=== PATIENT | female | born 1955 | race Caucasian/White ===

== ENCOUNTER 2019-07-25 19:25 | Inpatient (IN) | payer BC, MEDICARE ==
[~2019-07-25] VITALS: Ht 170.2 cm; Wt 99.7 kg
[2019-07-25 19:35] VITALS: BP 122/62
[2019-07-25] MEDS ORDERED: ONDANSETRON PF 4 MG/2 ML VIAL. IVP PRN (20:00)
[2019-07-25] MEDS: POTASSIUM CL 20MEQ D5-0.45NACL 1,000 ML IV SCH (21:11)
[2019-07-25] MEDS: fentaNYL PF VIAL 100 MCG/2 ML VIAL IVP PRN (22:53)
[2019-07-25 23:02] VITALS: BP 112/46
[2019-07-26] VITALS (11 sets, daily range): BP systolic 95–127; BP diastolic 43–63
[2019-07-26] MEDS: PIPERACILLIN/TAZOBACTAM 3.375 GM in IV NORMAL SALINE 50ML 50 ML IV SCH ×4 (00:25→18:27)
[2019-07-26] MEDS ORDERED: FLUO20CA20 PO (01:32)
[2019-07-26] MEDS ORDERED: TRIA50CA3 PO (01:32)
[2019-07-26] MEDS ORDERED: THYR30TA2 PO (01:32)
[2019-07-26] MEDS ORDERED: METO25TA4 PO (01:32)
[2019-07-26] MEDS ORDERED: GABA600T7 PO (01:32)
[2019-07-26] MEDS ORDERED: METF500T16 PO (01:32)
[2019-07-26] MEDS ORDERED: ALBU2.5V8 INH (01:32)
[2019-07-26] MEDS ORDERED: PITA2TAB2 PO (01:32)
[2019-07-26] MEDS ORDERED: HYDR-2767 PO (01:32)
[2019-07-26] MEDS ORDERED: ALBU2.5V8 IH (01:32)
[2019-07-26] MEDS: fentaNYL PF VIAL 100 MCG/2 ML VIAL IVP PRN ×3 (02:36→08:49)
[2019-07-26 04:29] LABS: BASO % 0 % (0-3); EOS % 0 % (0-3); HEMATOCRIT 33.4 % (36.0-47.0); HEMOGLOBIN 11.7 g/dL (12.0-15.5); LYMPH # 0.7 x10^3/uL (1.0-4.8); LYMPH % 9 % (24-48); MEAN CORPUSCULAR HEMOGLOBIN 30 pg (25-35); MEAN CORPUSCULAR HGB CONC 35 g/dL (31-37); MEAN CORPUSCULAR VOLUME 86 fL (79-100); MONO # 0.6 x10^3/uL (0.0-1.1); MONO % 7 % (0-9); NEUT # 7.3 x10^3/uL (1.8-7.7); NEUT % 84 % (31-73); PLATELET COUNT 158 x10^3/uL (140-400); RED CELL DISTRIBUTION WIDTH 13.3 % (11.5-14.5); WHITE BLOOD COUNT 8.7 x10^3/uL (4.0-11.0)
[2019-07-26 04:56] LABS: PROTHROMBIN TIME PATIENT 14.6 SEC (11.7-14.0)
[2019-07-26 05:00] LABS: ALBUMIN 2.9 g/dL (3.4-5.0); CALCIUM 8.1 mg/dL (8.5-10.1); GFR 55.6; POTASSIUM 3.2 mmol/L (3.5-5.1); TOTAL PROTEIN 5.7 g/dL (6.4-8.2)
[2019-07-26] MEDS: POTASSIUM CL 20MEQ D5-0.45NACL 1,000 ML IV SCH (05:41)
[2019-07-26] MEDS ORDERED: IV RINGERS,LACTATED 1000ML 1,000 ML IV SCH (06:58)
[2019-07-26] MEDS ORDERED: LIDOCAINE 1% PF 2 ML VIAL. ID PRN (07:00)
[2019-07-26] MEDS ORDERED: ONDANSETRON PF 4 MG/2 ML VIAL. IV PRN (07:00)
[2019-07-26] MEDS ORDERED: PROCHLORPERAZINE 10 MG/2 ML VIAL. IV PRN (07:00)
[2019-07-26] MEDS ORDERED: MORPHINE SULFATE 2 MG/ML VIAL. IV PRN (07:00)
[2019-07-26] MEDS ORDERED: fentaNYL PF VIAL 100 MCG/2 ML VIAL IV PRN ×2 (07:00)
[2019-07-26] MEDS ORDERED: HYDROmorphone 2 MG/ML VIAL IV PRN (07:00)
--- NOTE | 2019-07-26 08:00 | NUR ---
SW following. Discussed with RN, pt from home, pt having a lap appy today. SW will continue to follow for any discharge planning needs.
--- NOTE | 2019-07-26 08:45 | PDOC2 ---
JOHN PERALTA Ulysses PHARMACIST IN CHARGE 07/26/19 0845: CONSULT Date of Consult Date of Consult DATE: 07/26/19 TIME: 08:37 Reason for Consult Reason for Consult: acute appendicitis Referring Physician Referring Physician: ER Identification/Chief Complaint Chief Complaint abdominal pain Source Source: Chart review, Patient History of Present Illness Reason for Visit: acute onset of RLQ pain yesterday, pain became progressively worse. Associated nausea, low grade fevers. Pain aggravated by movement. No alleviating factors Past Medical History Cardiovascular: HTN, Hyperlipidemia, Other (tachycardia ) Pulmonary: Asthma, Other (apnea, cpap use) Endocrine: Diabetes, Hypothyroidism Past Surgical History Past Surgical History: Other (lap band, foot surgery) Family History Family History: Other (noncontributory to current illness ) Social History No ALCOHOL: rare Drugs: None Lives: with Family Current Medications Current Medications Current Medications Fentanyl Citrate (Fentanyl 2ml Vial) 50 mcg PRN Q3HRS PRN IVP PAIN Last administered on 07/26/19at 05:41; Start 07/25/19 at 20:00 Ondansetron HCl (Zofran) 4 mg PRN Q4HRS PRN IVP NAUSEA/VOMITING Last administered on 07/26/19at 02:41; Start 07/25/19 at 20:00 Piperacillin Sod/ Tazobactam Sod 3.375 gm/Sodium Chloride 50 ml @ 100 mls/hr Q6HRS IV Last administered on 07/26/19at 05:41; Start 07/26/19 at 00:00 Potassium Chloride/Dextrose/ Sod Cl 1,000 ml @ 100 mls/hr Q10H IV Last administered on 07/26/19at 05:41; Start 07/25/19 at 20:00 Ondansetron HCl (Zofran) 4 mg PRN Q6HRS PRN IV NAUSEA/VOMITING; Start 07/26/19 at 07:00; Stop 07/27/19 at 06:59 Fentanyl Citrate (Fentanyl 2ml Vial) 25 mcg PRN Q5MIN PRN IV MILD PAIN 1-3; Start 07/26/19 at 07:00; Stop 07/27/19 at 06:59 Fentanyl Citrate (Fentanyl 2ml Vial) 50 mcg PRN Q5MIN PRN IV MODERATE TO SEVERE PAIN; Start 07/26/19 at 07:00; Stop 6/20/20 at 06:59 Morphine Sulfate (Morphine Sulfate) 1 mg PRN Q10MIN PRN IV SEVERE PAIN 7-10; Start 07/26/19 at 07:00; Stop 07/27/19 at 06:59 Ringer's Solution 1,000 ml @ 30 mls/hr Q24H IV ; Start 07/26/19 at 06:58; Stop 07/26/19 at 18:57 Lidocaine HCl (Xylocaine-Mpf 1% 2ml Vial) 2 ml PRN 1X PRN ID PRIOR TO IV START; Start 07/26/19 at 07:00; Stop 07/27/19 at 06:59 Hydromorphone HCl (Dilaudid) 0.5 mg PRN Q10MIN PRN IV SEV PAIN, Second choice; Start 07/26/19 at 07:00; Stop 07/27/19 at 06:59 Prochlorperazine Edisylate (Compazine) 5 mg PACU PRN PRN IV NAUSEA, MRX1; Start 07/26/19 at 07:00; Stop 07/27/19 at 06:59 Active Scripts Active Reported [employer] Thyroid (Thyroid,Pork) 30 Mg Tablet 1 Tab PO DAILY 30 Days Hydrocodone-Acetamin 10-325 mg (Hydrocodone/Acetaminophen) 1 Each Tablet 1 Each PO HS Proair Hfa (Albuterol Sulfate) 8.5 Gm Hfa.aer.ad 1 Puff INH PRN Q6HRS PRN Proair Hfa (Albuterol Sulfate) 8.5 Gm Hfa.aer.ad 2 Puff IH PRN Q4-6HRS PRN 21 Days Metformin Hcl 500 Mg Tablet 500 Mg PO HS Livalo (Pitavastatin Calcium) 2 Mg Tablet 1 Tab PO HS 30 Days Fluoxetine Hcl 20 Mg Capsule 1 Cap PO DAILY Triamterene 50 Mg Capsule 37.5 Mg PO DAILY08 Gabapentin 600 Mg Tablet 600 Mg PO HS Metoprolol Tartrate 25 Mg Tablet 1 Tab PO HS Allergies Allergies: Coded Allergies: No Known Medication Allergies (Verified Allergy, Unknown, 07/25/19) ROS General: YES: Appetite (loss), Other (low grade fevers ); No: Chills PSYCHOLOGICAL ROS: No: Anxiety, Depression Eyes: No Blurry vision, No Double vision HEENT: No: Heacaches, Sore Throat Hematological and Lymphatic: No: Bleeding Problems, Blood Clots Respiratory: No: Cough, Shortness of breath Cardiovascular: No Chest Pain, No Palpitations Gastrointestinal: Yes Other (see hpi) Genitourinary: No Dysuria, No Hematuria Musculoskeletal: No Joint Pain, No Muscle Pain Neurological: No Headaches, No Numbness/Tingling Skin: No Pruritus, No Rash Physical Exam General: Alert, Oriented X3, Cooperative HEENT: Atraumatic, PERRLA Lungs: Clear to auscultation, Normal air movement Heart: Regular rate, Normal S1, Normal S2 Abdomen: Soft, Other (mildly distended, ttp moderate to severe, guarding on exam) Extremities: No clubbing, No cyanosis Skin: No rashes, No breakdown Neuro: Normal gait, Normal speech Psych/Mental Status: Mental status NL, Mood NL MUSCULOSKELETAL: No deformity, No swelling Vitals VITALS Vital Signs Date Time Temp Pulse Resp B/P (MAP) Pulse Ox O2 Delivery O2 Flow Rate FiO2 07/26/19 06:59 99.2 70 18 95/55 (68) 93 Room Air 99.2 Labs Labs Laboratory Tests Test 07/26/19 03:38 White Blood Count 8.7 x10^3/uL (4.0-11.0) Red Blood Count 3.90 x10^6/uL (3.50-5.40) Hemoglobin 11.7 g/dL (12.0-15.5) Hematocrit 33.4 % (36.0-47.0) Mean Corpuscular Volume 86 fL (79-100) Mean Corpuscular Hemoglobin 30 pg (25-35) Mean Corpuscular Hemoglobin Concent 35 g/dL (31-37) Red Cell Distribution Width 13.3 % (11.5-14.5) Platelet Count 158 x10^3/uL (140-400) Neutrophils (%) (Auto) 84 % (31-73) Lymphocytes (%) (Auto) 9 % (24-48) Monocytes (%) (Auto) 7 % (0-9) Eosinophils (%) (Auto) 0 % (0-3) Basophils (%) (Auto) 0 % (0-3) Neutrophils # (Auto) 7.3 x10^3/uL (1.8-7.7) Lymphocytes # (Auto) 0.7 x10^3/uL (1.0-4.8) Monocytes # (Auto) 0.6 x10^3/uL (0.0-1.1) Eosinophils # (Auto) 0.0 x10^3/uL (0.0-0.7) Basophils # (Auto) 0.0 x10^3/uL (0.0-0.2) Prothrombin Time 14.6 SEC (11.7-14.0) Prothromb Time International Ratio 1.2 (0.8-1.1) Sodium Level 139 mmol/L (136-145) Potassium Level 3.2 mmol/L (3.5-5.1) Chloride Level 103 mmol/L (98-107) Carbon Dioxide Level 27 mmol/L (21-32) Anion Gap 9 (6-14) Blood Urea Nitrogen 10 mg/dL (7-20) Creatinine 1.0 mg/dL (0.6-1.0) Estimated GFR (Cockcroft-Gault) 55.6 BUN/Creatinine Ratio 10 (6-20) Glucose Level 146 mg/dL (70-99) Calcium Level 8.1 mg/dL (8.5-10.1) Total Bilirubin 1.0 mg/dL (0.2-1.0) Aspartate Amino Transf (AST/SGOT) 15 U/L (15-37) Alanine Aminotransferase (ALT/SGPT) 25 U/L (14-59) Alkaline Phosphatase 38 U/L (46-116) Total Protein 5.7 g/dL (6.4-8.2) Albumin 2.9 g/dL (3.4-5.0) Albumin/Globulin Ratio 1.0 (1.0-1.7) Laboratory Tests Test 07/26/19 03:38 White Blood Count 8.7 x10^3/uL (4.0-11.0) Red Blood Count 3.90 x10^6/uL (3.50-5.40) Hemoglobin 11.7 g/dL (12.0-15.5) Hematocrit 33.4 % (36.0-47.0) Mean Corpuscular Volume 86 fL (79-100) Mean Corpuscular Hemoglobin 30 pg (25-35) Mean Corpuscular Hemoglobin Concent 35 g/dL (31-37) Red Cell Distribution Width 13.3 % (11.5-14.5) Platelet Count 158 x10^3/uL (140-400) Neutrophils (%) (Auto) 84 % (31-73) Lymphocytes (%) (Auto) 9 % (24-48) Monocytes (%) (Auto) 7 % (0-9) Eosinophils (%) (Auto) 0 % (0-3) Basophils (%) (Auto) 0 % (0-3) Neutrophils # (Auto) 7.3 x10^3/uL (1.8-7.7) Lymphocytes # (Auto) 0.7 x10^3/uL (1.0-4.8) Monocytes # (Auto) 0.6 x10^3/uL (0.0-1.1) Eosinophils # (Auto) 0.0 x10^3/uL (0.0-0.7) Basophils # (Auto) 0.0 x10^3/uL (0.0-0.2) Prothrombin Time 14.6 SEC (11.7-14.0) Prothromb Time International Ratio 1.2 (0.8-1.1) Sodium Level 139 mmol/L (136-145) Potassium Level 3.2 mmol/L (3.5-5.1) Chloride Level 103 mmol/L (98-107) Carbon Dioxide Level 27 mmol/L (21-32) Anion Gap 9 (6-14) Blood Urea Nitrogen 10 mg/dL (7-20) Creatinine 1.0 mg/dL (0.6-1.0) Estimated GFR (Cockcroft-Gault) 55.6 BUN/Creatinine Ratio 10 (6-20) Glucose Level 146 mg/dL (70-99) Calcium Level 8.1 mg/dL (8.5-10.1) Total Bilirubin 1.0 mg/dL (0.2-1.0) Aspartate Amino Transf (AST/SGOT) 15 U/L (15-37) Alanine Aminotransferase (ALT/SGPT) 25 U/L (14-59) Alkaline Phosphatase 38 U/L (46-116) Total Protein 5.7 g/dL (6.4-8.2) Albumin 2.9 g/dL (3.4-5.0) Albumin/Globulin Ratio 1.0 (1.0-1.7) Assessment/Plan Assessment/Plan acute appendicitis plan for lap appy consult for pulm, asthma, apnea hx, hypoxia postop in past surgery covid pending FREDRICK HOPKINS MD 07/26/19 0902: CONSULT Assessment/Plan Assessment/Plan Patient seen and examined by me. She complains of having right lower quadrant abdominal pain for approximately 18 hours starting yesterday denies any nausea vomiting fevers or chills. Came to the emergency department further evaluation CT scan showing signs consistent with acute appendicitis with no evidence of abscess or rupture. Plan for laparoscopic appendectomy today. Agree with [place] assessment and plan JOHN PERALTA APRN Jul 26, 2019 08:45 FREDRICK HOPKINS MD Jul 26, 2019 09:02
--- NOTE | 2019-07-26 10:04 | CONS ---
DATE OF CONSULTATION: PULMONARY CONSULTATION ATTENDING PHYSICIAN: Dr. Olson. REASON FOR CONSULTATION: Asthma, sleep apnea. HISTORY OF PRESENT ILLNESS: The patient is a 64-year-old morbidly obese patient with a BMI of 34. She has a history of obstructive sleep apnea for which she is on CPAP. She is not on home oxygen. She also has a history of asthma, mostly adult onset and has been on Advair. She states asthma is usually triggered by allergies and humidity. She has required steroids, maybe, twice a year. No history of deep vein thrombosis or pulmonary embolism. No postnasal drainage. No cough, no fever, no chills. She has put on about 30 pounds in last 2 years. She was brought into the hospital with right lower quadrant pain associated with nausea and low-grade fever and is being evaluated for acute appendicitis. Surgery is planned today. PAST MEDICAL HISTORY: History of hypertension, hyperlipidemia, history of asthma, history of sleep apnea, on CPAP, diabetes and hypertension. PAST SURGICAL HISTORY: Lap band and bunion surgery. FAMILY HISTORY: Noncontributory to lungs. ALLERGIES: None. MEDICATIONS: Reviewed as listed in the [facility] including antibiotic, Zosyn. REVIEW OF SYSTEMS: Twelve-point system obtained. Pertinent positives discussed in my history of present illness, otherwise noncontributory. All systems that were negative were reviewed as well. SOCIAL HISTORY: No significant tobacco history. PHYSICAL EXAMINATION: VITAL SIGNS: Reviewed. Pulse ox 93% on room air. NECK: Supple. LUNGS: Clear. CARDIOVASCULAR: Regular rate. ABDOMEN: Obese and some pain in the right lower quadrant. EXTREMITIES: With no pitting edema. LABORATORY DATA: Reviewed. White cell count 8.7, hemoglobin 11.7 and platelets are 158. BUN and creatinine normal. Chest x-ray is not done. IMPRESSION: 1. Acute appendicitis, scheduled for surgery later this morning. 2. The patient with history of asthma, under reasonable control and no flareups at present, on home Advair. Triggers are usually allergies as well as humidity. 3. History of obstructive sleep apnea, on home CPAP with good compliance and no residual hypersomnia, likely has a component of obesity hypoventilation syndrome. She had a low oxygen level when she had general anesthetic on prior surgery and this needs to be watched post surgery, especially when she would require postop narcotics. RECOMMENDATIONS: 1. I discussed with the patient that from a pulmonary standpoint, she is stable to proceed with surgery under general anesthetic. 2. We will watch for any postop hypoxia. We will also add her bronchodilators including DuoNebs and Pulmicort. 3. I would recommend using CPAP while in the hospital. 4. Weight loss is strongly emphasized. 5. We will obtain baseline chest x-ray. 6. We will follow along with you. Discussed with RN. INO BLOCK MD DR: YAYO/malik JOB#: [id number] / [id number]
--- NOTE | 2019-07-26 10:11 | PN ---
DATE: 07/26/2019 SUBJECTIVE: The patient is resting, slightly propped up in bed, in no apparent distress. She continued to have pain in the right lower quadrant. No nausea. No vomiting. PHYSICAL EXAMINATION: GENERAL: On examining her this morning, she looked well and was clearly in no apparent respiratory distress. No pallor, jaundice, cyanosis or thyromegaly. No jugular venous distention. No limb edema. VITAL SIGNS: Her heart rate was 70, blood pressure was 95/55, temperature was 99.2, respiratory rate was 18 and oxygen saturation was 93%. The rest of clinical exam is stable. She continued to have tenderness in the right lower quadrant. LABORATORY DATA: Her lab work this morning showed a serum sodium 139, potassium 3.2, chloride 103, bicarbonate 27, anion gap of 9, BUN 10, creatinine 1, estimated GFR was 55 mL per minute. Her glucose 146, calcium was 8.1. Total bilirubin 1. AST, ALT, alkaline phosphatase normal. Total protein 5.7, albumin 2.9. White cell count is 8700, hemoglobin 12, hematocrit 33, MCV 86 and platelet count of 158,000. Her prothrombin time and INR are within normal range. ASSESSMENT AND PLAN: Acute appendicitis. Apparently, she was seen by the surgical team and awaiting the result of the COVID test before proceeding with surgical treatment. Meanwhile, she has also hypokalemia. I will adjust her IV fluid to D5 half normal with 40 mEq of potassium chloride. We will continue with Zosyn for appendicitis as well as urinary tract infection. HAI RODRIGUES MD DR: ATA/malik JOB#: [id number] / [id number]
[2019-07-26] MEDS ORDERED: MAGNESIUM SULFATE 2GM 50 ML IV ONE (10:15)
--- NOTE | 2019-07-26 11:03 | HP ---
ADMIT DATE: 07/25/2019 HISTORY OF PRESENT ILLNESS: The patient is a 64-year-old female patient who apparently presented to the Emergency Room of [facility] with the complaint of fever up to 101, generalized malaise, nausea and right lower quadrant abdominal pain. Reports symptoms started the night before. She reports she was able to eat dinner with her family and subsequently started to feel uncomfortable. She reported that she took some Tums that seems to have some help. She woke up the day of admission with considerable pain in the right lower quadrant. She did have a bowel movement prior to arrival to the Emergency Room. 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 Denies known exposure to COVID-19. Denies any recent travel. She drank some jose ameena prior to the arrival to the Emergency Room. She was evaluated in the Emergency Room. Her white cell count was slightly elevated at 11.2. She had low-grade fever on arrival there at 99.9. Her chemistry was mostly unremarkable; however, CT scan of the abdomen and pelvis showed that she has acute appendicitis. There is no evidence of perforation or abscess. She has hepatomegaly and hepatic steatosis with finding suggestive of constipation, has also gastric lap band. She has a 1.4 cm hypodense lesion within the left hepatic lobe in the absence of known malignancy. This is likely a cyst or hemangioma. Tiny hypodense lesion within the uterus. This may be due to a lipoma with cystic degeneration of uterine fibroids. She has a grade 1 anterolisthesis with pars defects at L4-L5. The patient was transferred to [facility], kept n.p.o., started on IV fluid, IV antibiotic as well as pain medication, antiemetic. PAST MEDICAL HISTORY: Significant for hypertension, hyperlipidemia and prediabetes, depression, gastroesophageal reflux disease. PAST SURGICAL HISTORY: Significant for lap band surgery 15 years ago and bunionectomy in both feet. ALLERGIES: She has no known drug allergies. MEDICATIONS: Currently, she is on albuterol sulfate 2 puffs every 4-6 hours, Livalo 2 mg at bedtime, metoprolol tartrate 25 mg once a day, hydrocodone/APAP 10/325 one tablet at bedtime, gabapentin 600 mg at bedtime, fluoxetine 20 mg daily and triamterene 37.5 mg daily, metformin 500 mg at bedtime. She has Thyroid Pork 30 mg daily. FAMILY HISTORY: Noncontributory. SOCIAL HISTORY: She is apparently and lives with her family. She does not smoke, drink alcohol or use any recreational drugs. 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 PHYSICAL EXAMINATION: GENERAL: On arrival to the Emergency Room, she looked well and was clearly in no apparent respiratory distress. No pallor, jaundice, cyanosis or thyromegaly. No jugular venous distention. No lower limb edema. VITAL SIGNS: Her heart rate was 104, blood pressure was 156/97, temperature was 99.9, respiratory rate 24 and oxygen saturation was 95%. HEAD, EYES, EARS, NOSE AND THROAT: Showed normocephalic, atraumatic. NECK: Supple. HEART: Showed normal first and second heart sounds. No gallop or murmur. CHEST: Clear to auscultation. No crepitation or rhonchi. ABDOMEN: Distended with pain, mostly in the right lower quadrant, rebound tenderness. No guarding or rigidity. Bowel sounds normal. NEUROLOGIC: She is awake, alert, responding appropriately. All cranial nerves intact. EXTREMITIES: She moves extremities without difficulty. LABORATORY WORK: Her white cell count was 11,200, hemoglobin 14, hematocrit 41, MCV 86 and platelet count of 219,000. Her lab work showed that her chemistry showed a serum sodium 141, potassium 3.4, chloride 98, bicarbonate 32, anion gap of 11, BUN 11, creatinine 1, estimated GFR was 55 mL per minute, her glucose 141, calcium was 9.4, magnesium was 1.7. Lactic acid was 2. Total bilirubin, AST, ALT, alkaline phosphatase were normal. Total protein was 7.1, albumin was 3.7. Her lipase was 85. Her prothrombin time and INR and aPTT are normal. Urinalysis showed the urine was yellow, hazy with a pH of 8, specific gravity of 1.015. The urine was negative for protein, glucose, ketones, blood, nitrite. There was moderate amount of leukocyte esterase. There are 1-2 rbc's, more than 40 wbc's, and moderate amount of bacteria. Her CT scan of the abdomen showed that she has acute appendicitis. There is no evidence of perforation or abscess. Hepatomegaly with hepatic steatosis findings suggestive of constipation, gastric lap band 1.4 cm hypodense lesion within the left hepatic lobe. In the absence of known malignancy, this is likely a cyst or hemangioma. Tiny hypodense lesion within the uterus. This may be due to a lipoma or cystic degeneration of uterine fibroids. She has a grade 1 anterolisthesis with pars defect and at L5-S1. PLAN: Plan is to keep the patient n.p.o. She was started on D5 half normal with 20 mEq of potassium chloride. She was also started on fentanyl 50 mcg IV every 3 hours, Zosyn 3.375 grams IV every 8 hours, together with Zofran. We have consulted the surgical team for definitive surgical treatment. ADMISSION DIAGNOSES: Acute appendicitis, urinary tract infection. She is also known to have hypertension, hyperlipidemia as well as prediabetes. HAI RODRIGUES MD DR: ATA/malik JOB#: [id number] / [id number]
[2019-07-26] MEDS: MORPHINE SULFATE 4 MG/ML VIAL. IV PRN ×3 (11:20→22:46)
[2019-07-26] MEDS: POTASSIUM CL 40MEQ D5-0.45NACL 1,000 ML IV SCH (11:25)
[2019-07-26] MEDS: IPRATRPIUM/ALBUTEROL 0.5/2.5MG 3 ML NEBU. NEB SCH ×3 (11:38→20:00)
[2019-07-26] MEDS ORDERED: SUCCINYLCHOLINE 200 MG/10 ML VIAL. ONE (13:57)
[2019-07-26] MEDS ORDERED: NEOSTIGMINE METHYLSULFATE 5 MG/5 ML SYRINGE. ONE (13:57)
[2019-07-26] MEDS ORDERED: fentaNYL PF VIAL 100 MCG/2 ML VIAL ONE ×2 (13:57→16:49)
[2019-07-26] MEDS ORDERED: ROCURONIUM 50 MG/5 ML VIAL. ONE (13:57)
[2019-07-26] MEDS ORDERED: ONDANSETRON PF 4 MG/2 ML VIAL. ONE (13:58)
[2019-07-26] MEDS ORDERED: MIDAZOLAM HCL/PF 2 MG/2 ML VIAL. ONE (13:58)
[2019-07-26] MEDS ORDERED: LIDOCAINE 2% PF 5 ML VIAL. ONE (13:58)
[2019-07-26] MEDS ORDERED: PROPOFOL 10 MG/ML (20ML) VIAL. IV ONE (13:58)
[2019-07-26] MEDS ORDERED: GLYCOPYRROLATE 1 MG/5 ML VIAL. ONE (13:58)
[2019-07-26] MEDS ORDERED: DEXAMETHASONE SOD PHOS 4 MG/ML VIAL ONE (13:58)
[2019-07-26] MEDS ORDERED: BUPIVACAINE-EPI 0.5%-1:200000 MPF 30 ML VIAL. ONE (15:26)
[2019-07-26] MEDS ORDERED: PHENYLEPHRINE in 0.9% NACL PF 1 MG/10 ML SYRINGE. IV ONE (16:05)
[2019-07-26] MEDS ORDERED: SURGICEL HEMOSTAT 4X8 EACH. ONE (16:38)
--- NOTE | 2019-07-26 16:51 | RAD ---
PORTABLE CHEST 1V Clinical indications: Asthma COMPARISON: None available. Findings: Lung volumes are small. No acute lung infiltrate or pleural effusion or pulmonary edema or lung mass or pneumothorax is seen. The heart size, pulmonary vasculature, mediastinum and both adriano are unremarkable. Impression: No acute radiographic abnormality is seen. Electronically signed by: Dean Lino MD (07/26/2019 4:48 PM) [id number]
--- NOTE | 2019-07-26 18:20 | RAD ---
EXAM: Abdomen, single view. HISTORY: Incorrect surgical count. COMPARISON: None. FINDINGS: A single view of the abdomen is obtained. There is a gastric lap band overlying expected position. There is a catheter anteromedial overlying the right abdomen and pelvis. No retained surgical foreign body is seen. There is a nonobstructive bowel gas pattern. There is degenerative change at the lower lumbar levels. IMPRESSION: No evidence of retained foreign body. Electronically signed by: Yina Khoury MD (07/26/2019 6:17 PM) [facility]
--- NOTE | 2019-07-26 18:58 | PDOC ---
BRIEF OPERATIVE NOTE Date: Jul 26, 2019 Pre-Op Diagnosis acute appendicitis Post-Op Diagnosis same Procedure Performed l/s appendectomy Surgeon Jason Hand Buffing Wheel Former Patricia CHOUDHURY Anesthesia Type: General Blood Loss 25cc IV Fluid 800cc Urine Output 500cc Specimens Obtained appendix Findings acute appendicitis with surrounding inflammatory change Complications none Operative Note Wk # [id number] TRAY MITCHELL MD Jul 26, 2019 18:58
[2019-07-26] MEDS: BUDESONIDE 0.5 MG/2 ML NEBU. NEB SCH (20:00)
--- NOTE | 2019-07-26 20:24 | OP ---
DATE OF SURGERY: 07/26/2019 PREOPERATIVE DIAGNOSIS: Acute appendicitis. POSTOPERATIVE DIAGNOSIS: Acute appendicitis. PROCEDURE: Laparoscopic appendectomy. SURGEON: Solomon Mitchell MD BREAKDOWN MAN: MACEY Toth ANESTHESIA: General endotracheal. ESTIMATED BLOOD LOSS: 25. INTRAVENOUS FLUIDS: 800. URINE OUTPUT: 500. 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 She is brought for appendectomy. OPERATIVE FINDINGS: She did indeed have an acute suppurative appendicitis with surrounding inflammatory change, but no obvious abscess. DESCRIPTION OF PROCEDURE: The patient brought to the operating suite, given a general endotracheal anesthetic, Moran catheter placed to dependent drainage, and the abdomen prepped and draped in usual sterile fashion. A supraumbilical port was infiltrated with local, incised and a 5 mm Visiport used to safely gain access into the abdominal cavity. Pneumoperitoneum established. Inspection carried out with results as noted above as well as the catheter from her lap band. Under direct vision, the suprapubic and left lower quadrant ports were placed and the bed was placed in slight Trendelenburg rolled to the left. The inflamed appendix was gently freed from surrounding structures and the base was identified. A rent between the base of the appendix and the mesoappendix was created and an Endo-JOB stapler with a tissue load was used to amputate the appendix. A series of vascular loads were used to divide the mesoappendix. Hemostasis augmented with medium large and large clips. Appendix placed in an EndoCatch bag and the area was irrigated and evacuated and checked for hemostasis. When this was present, a 19-Stateless round Marcelo drain was brought through a right-sided stab wound and left in the pericolic gutter and pelvis, secured with a silk stitch. Table returned to level. Appendix delivered through the umbilical port site, which was then closed with 0 Vicryl sutures. Intra-abdominal pressure decreased to 8 cm of water, no bleeding from the umbilical closure, left lower quadrant port site, or suprapubic port site after its removal. Skin incisions closed with subcuticular 4-0 Monocryl. Steri-Strips and sterile dressings applied. The patient awakened from her anesthetic and taken to the recovery room in satisfactory condition. SOLOMON MITCHELL MD DR: Aurelia JOB#: [id number] / [id number]
[2019-07-27] MEDS: PIPERACILLIN/TAZOBACTAM 3.375 GM in IV NORMAL SALINE 50ML 50 ML IV SCH ×4 (00:22→17:56)
[2019-07-27] MEDS ORDERED: fentaNYL PF VIAL 100 MCG/2 ML VIAL IVP PRN (01:45)
[2019-07-27 03:05] VITALS: BP 113/62
[2019-07-27] MEDS: POTASSIUM CL 40MEQ D5-0.45NACL 1,000 ML IV SCH ×2 (03:08→06:00)
[2019-07-27] MEDS: MORPHINE SULFATE 4 MG/ML VIAL. IV PRN ×3 (06:18→19:20)
--- NOTE | 2019-07-27 06:47 | PDOC ---
PULMONARY PROGRESS NOTES Subjective on 02, didnt toleratee cpap, denies sob, trying not to cough, has abd pain Vitals Vital Signs Date Time Temp Pulse Resp B/P (MAP) Pulse Ox O2 Delivery O2 Flow Rate FiO2 07/27/19 06:18 18 93 Room Air 2.0 07/27/19 03:05 98.5 84 113/62 (79) 98.5 General: Alert, Oriented X4 HEENT: Other (nc at perrl nose throat clear) Lungs: Clear Cardiovascular: S1, S2 Abdomen: Other (distended) Neuro Exam: Alert, Oriented Extremities: No Edema Skin: Warm Labs Laboratory Tests Test 07/26/19 03:38 07/26/19 10:55 White Blood Count 8.7 x10^3/uL (4.0-11.0) Red Blood Count 3.90 x10^6/uL (3.50-5.40) Hemoglobin 11.7 g/dL (12.0-15.5) Hematocrit 33.4 % (36.0-47.0) Mean Corpuscular Volume 86 fL (79-100) Mean Corpuscular Hemoglobin 30 pg (25-35) Mean Corpuscular Hemoglobin Concent 35 g/dL (31-37) Red Cell Distribution Width 13.3 % (11.5-14.5) Platelet Count 158 x10^3/uL (140-400) Neutrophils (%) (Auto) 84 % (31-73) Lymphocytes (%) (Auto) 9 % (24-48) Monocytes (%) (Auto) 7 % (0-9) Eosinophils (%) (Auto) 0 % (0-3) Basophils (%) (Auto) 0 % (0-3) Neutrophils # (Auto) 7.3 x10^3/uL (1.8-7.7) Lymphocytes # (Auto) 0.7 x10^3/uL (1.0-4.8) Monocytes # (Auto) 0.6 x10^3/uL (0.0-1.1) Eosinophils # (Auto) 0.0 x10^3/uL (0.0-0.7) Basophils # (Auto) 0.0 x10^3/uL (0.0-0.2) Prothrombin Time 14.6 SEC (11.7-14.0) Prothromb Time International Ratio 1.2 (0.8-1.1) Sodium Level 139 mmol/L (136-145) Potassium Level 3.2 mmol/L (3.5-5.1) Chloride Level 103 mmol/L (98-107) Carbon Dioxide Level 27 mmol/L (21-32) Anion Gap 9 (6-14) Blood Urea Nitrogen 10 mg/dL (7-20) Creatinine 1.0 mg/dL (0.6-1.0) Estimated GFR (Cockcroft-Gault) 55.6 BUN/Creatinine Ratio 10 (6-20) Glucose Level 146 mg/dL (70-99) Calcium Level 8.1 mg/dL (8.5-10.1) Total Bilirubin 1.0 mg/dL (0.2-1.0) Aspartate Amino Transf (AST/SGOT) 15 U/L (15-37) Alanine Aminotransferase (ALT/SGPT) 25 U/L (14-59) Alkaline Phosphatase 38 U/L (46-116) Total Protein 5.7 g/dL (6.4-8.2) Albumin 2.9 g/dL (3.4-5.0) Albumin/Globulin Ratio 1.0 (1.0-1.7) Coronavirus (COVID-19)(PCR) Negative (NEGATIVE) Laboratory Tests Test 07/26/19 10:55 Coronavirus (COVID-19)(PCR) Negative (NEGATIVE) Medications Active Scripts Medications Dose Route/Sig Max Daily Dose Days Date Category Cook Mess Thyroid (Thyroid,Pork) 30 Mg Tablet 1 Tab PO DAILY 30 07/26/19 Reported Hydrocodone-Acetamin 10-325 mg (Hydrocodone/Acetaminophen) 1 Each Tablet 1 Each PO HS 07/26/19 Reported Proair Hfa (Albuterol Sulfate) 8.5 Gm Hfa.aer.ad 1 Puff INH PRN Q6HRS PRN 07/26/19 Reported Proair Hfa (Albuterol Sulfate) 8.5 Gm Hfa.aer.ad 2 Puff IH PRN Q4-6HRS PRN 21 07/26/19 Reported Metformin Hcl 500 Mg Tablet 500 Mg PO HS 07/26/19 Reported Livalo (Pitavastatin Calcium) 2 Mg Tablet 1 Tab PO HS 30 07/26/19 Reported Fluoxetine Hcl 20 Mg Capsule 1 Cap PO DAILY 07/26/19 Reported Triamterene 50 Mg Capsule 37.5 Mg PO DAILY08 07/26/19 Reported Gabapentin 600 Mg Tablet 600 Mg PO HS 07/26/19 Reported Metoprolol Tartrate 25 Mg Tablet 1 Tab PO HS 07/26/19 Reported Comments cxr reviewed No acute radiographic abnormality is seen. Impression . IMPRESSION: 1. Acute appendicitis, s/p appendectomy pod #1 2. The patient with history of asthma, under reasonable control and no flareups at present, on home Advair. Triggers are usually allergies as well as humidity. 3. History of obstructive sleep apnea, on home CPAP with good compliance and no residual hypersomnia, likely has a component of obesity hypoventilation syndrome. She had a low oxygen level when she had general anesthetic on prior surgery and this needs to be watched post surgery, especially when she would require postop narcotics. Plan . RECOMMENDATIONS: 1. 02 titration, start IS, avoid over sedation 2. cont bronchodilators including DuoNebs and Pulmicort. 3. I would recommend using CPAP while in the hospital. 4. Weight loss is strongly emphasized. 5. chest x-ray reviewed. 6. We will follow along with you. Discussed with RN, pt. TANK NERI MD Jul 27, 2019 06:47
--- NOTE | 2019-07-27 06:48 | NUR ---
Dr. Becker here and gave order for IS. Instructed Patient on use, Patient declined to use at this time.
[2019-07-27 07:27] VITALS: BP 113/60
[2019-07-27] MEDS: BUDESONIDE 0.5 MG/2 ML NEBU. NEB SCH (07:33)
[2019-07-27] MEDS: IPRATRPIUM/ALBUTEROL 0.5/2.5MG 3 ML NEBU. NEB SCH ×3 (07:33→15:36)
[2019-07-27 07:49] LABS: CALCIUM 7.4 mg/dL (8.5-10.1); CREATININE 0.9 mg/dL (0.6-1.0); GFR 62.8; MAGNESIUM 2.3 mg/dL (1.8-2.4); POTASSIUM 4.1 mmol/L (3.5-5.1)
[2019-07-27] MEDS ORDERED: oxyCODONE/APAP 5/325 1 TAB TABLET PO PRN (10:30)
--- NOTE | 2019-07-27 10:31 | PDOC ---
SURGICAL PROGRESS NOTE Subjective painful thirsty Vital Signs Vital Signs Date Time Temp Pulse Resp B/P (MAP) Pulse Ox O2 Delivery O2 Flow Rate FiO2 07/27/19 07:37 94 Nasal Cannula 2.0 07/27/19 07:27 98.0 77 18 113/60 (77) 98.0 I&O Intake and Output 07/27/19 07:00 Intake Total 3692 ml Output Total 1580 ml Balance 2112 ml Intake Oral 0 ml IV Total 3692 ml Output Urine Total 1450 ml Drainage Total 105 ml Estimated Blood Loss 25 ml # Voids 2 PATIENT HAS A HOARA: Yes (d/c today) General: Alert, Other (uncomfortable) HEENT: Atraumatic Abdomen: Other (LJ with serous drainage) Labs Laboratory Tests Test 07/26/19 03:38 07/26/19 10:55 07/27/19 05:50 White Blood Count 8.7 x10^3/uL (4.0-11.0) Red Blood Count 3.90 x10^6/uL (3.50-5.40) Hemoglobin 11.7 g/dL (12.0-15.5) Hematocrit 33.4 % (36.0-47.0) Mean Corpuscular Volume 86 fL (79-100) Mean Corpuscular Hemoglobin 30 pg (25-35) Mean Corpuscular Hemoglobin Concent 35 g/dL (31-37) Red Cell Distribution Width 13.3 % (11.5-14.5) Platelet Count 158 x10^3/uL (140-400) Neutrophils (%) (Auto) 84 % (31-73) Lymphocytes (%) (Auto) 9 % (24-48) Monocytes (%) (Auto) 7 % (0-9) Eosinophils (%) (Auto) 0 % (0-3) Basophils (%) (Auto) 0 % (0-3) Neutrophils # (Auto) 7.3 x10^3/uL (1.8-7.7) Lymphocytes # (Auto) 0.7 x10^3/uL (1.0-4.8) Monocytes # (Auto) 0.6 x10^3/uL (0.0-1.1) Eosinophils # (Auto) 0.0 x10^3/uL (0.0-0.7) Basophils # (Auto) 0.0 x10^3/uL (0.0-0.2) Prothrombin Time 14.6 SEC (11.7-14.0) Prothromb Time International Ratio 1.2 (0.8-1.1) Sodium Level 139 mmol/L (136-145) 141 mmol/L (136-145) Potassium Level 3.2 mmol/L (3.5-5.1) 4.1 mmol/L (3.5-5.1) Chloride Level 103 mmol/L (98-107) 105 mmol/L (98-107) Carbon Dioxide Level 27 mmol/L (21-32) 28 mmol/L (21-32) Anion Gap 9 (6-14) 8 (6-14) Blood Urea Nitrogen 10 mg/dL (7-20) 8 mg/dL (7-20) Creatinine 1.0 mg/dL (0.6-1.0) 0.9 mg/dL (0.6-1.0) Estimated GFR (Cockcroft-Gault) 55.6 62.8 BUN/Creatinine Ratio 10 (6-20) Glucose Level 146 mg/dL (70-99) 146 mg/dL (70-99) Calcium Level 8.1 mg/dL (8.5-10.1) 7.4 mg/dL (8.5-10.1) Total Bilirubin 1.0 mg/dL (0.2-1.0) Aspartate Amino Transf (AST/SGOT) 15 U/L (15-37) Alanine Aminotransferase (ALT/SGPT) 25 U/L (14-59) Alkaline Phosphatase 38 U/L (46-116) Total Protein 5.7 g/dL (6.4-8.2) Albumin 2.9 g/dL (3.4-5.0) Albumin/Globulin Ratio 1.0 (1.0-1.7) Coronavirus (COVID-19)(PCR) Negative (NEGATIVE) Magnesium Level 2.3 mg/dL (1.8-2.4) Laboratory Tests Test 07/26/19 10:55 07/27/19 05:50 Coronavirus (COVID-19)(PCR) Negative (NEGATIVE) Sodium Level 141 mmol/L (136-145) Potassium Level 4.1 mmol/L (3.5-5.1) Chloride Level 105 mmol/L (98-107) Carbon Dioxide Level 28 mmol/L (21-32) Anion Gap 8 (6-14) Blood Urea Nitrogen 8 mg/dL (7-20) Creatinine 0.9 mg/dL (0.6-1.0) Estimated GFR (Cockcroft-Gault) 62.8 Glucose Level 146 mg/dL (70-99) Calcium Level 7.4 mg/dL (8.5-10.1) Magnesium Level 2.3 mg/dL (1.8-2.4) Assessment/Plan POD 1 l/s appendectomy start po slow IV po pain meds d/w Dr Olson Justicifation of Admission Dx: Justifications for Admission: Justification of Admission Dx: Yes (acute appendicitis) TRAY MITCHELL MD Jul 27, 2019 10:30
[2019-07-27] MEDS: oxyCODONE/APAP 5/325 1 TAB TABLET PO PRN ×3 (10:39→21:20)
[2019-07-27 10:42] VITALS: BP 107/54
--- NOTE | 2019-07-27 10:58 | PN ---
DATE: 07/27/2019 SUBJECTIVE: The patient is a 64-year-old female patient who was admitted with acute appendicitis. She underwent laparoscopic appendectomy successfully. She was found to have acute suppurative appendicitis with surrounding inflammatory changes, but no obvious abscess. She has been complaining of pain, but no nausea, no vomiting. She apparently was seen by Dr. Gomez and she is now on a clear liquid diet and p.o. pain medication. She apparently has obstructive sleep apnea, but she could not tolerate the CPAP machine. PHYSICAL EXAMINATION: GENERAL: When I saw her this morning, she looked well and was clearly in no apparent respiratory distress. No pallor, jaundice, cyanosis or thyromegaly. No jugular venous distention. No limb edema. VITAL SIGNS: Her heart rate was 77, blood pressure was 113/60, temperature was 98, respiratory rate was 18 and oxygen saturation was 95%. HEAD, EYES, EARS, NOSE AND THROAT: Showed normocephalic, atraumatic. NECK: Supple. HEART: Showed normal first and second heart sounds. No gallop, rub or murmur. CHEST: Clear to auscultation. No crepitation or rhonchi. ABDOMEN: Slightly distended, soft with tenderness mostly in the right lower quadrant. There is no guarding or rigidity. No organomegaly. All hernial orifice intact. Bowel sounds normal. NEUROLOGIC: She is awake, alert, responding appropriately. All her cranial nerves intact. She moves extremities without difficulty. Her intake over the last 24 hours was 3690, output was 1580. LABORATORY DATA: As of this morning, her serum sodium was 141, potassium 4.1, chloride 105, bicarbonate 28, anion gap of 8, BUN 8, creatinine 0.9, estimated GFR was 62 mL per minute. Her glucose 146, calcium was 7.4, magnesium was 2.3. Her COVID-19 by PCR was negative. ASSESSMENT: 1. In summary, this is a 64-year-old female patient who was admitted with right lower quadrant abdominal pain, diagnosed with acute appendicitis for which she underwent laparoscopic appendectomy. 2. She has also urinary tract infection for which she is also on Zosyn. 3. Hypokalemia, resolved. 4. Other medical problems include: A. Hypertension. B. Hyperlipidemia. C. Depression. D. Gastroesophageal reflux disease. E. Obstructive sleep apnea, on CPAP. PLAN: Obviously to continue with pain medication and started on a clear liquid diet. I will consult Physical and Occupational Therapy to evaluate and treat. If she remains stable tomorrow, she can be discharged home. HAI RODRIGUES MD DR: ATA/malik JOB#: [id number] / [id number]
[2019-07-27] MEDS: POTASSIUM CHLORIDE 40 MEQ in IV DEXTROSE 5 %-0.45 % NACL 1,000 ML IV SCH ×2 (11:00→12:38)
--- NOTE | 2019-07-27 11:14 | NUR ---
1100 IVF nonadmin d/t previous bag still running
[2019-07-27 14:37] VITALS: BP 109/53
[2019-07-27 19:00] VITALS: BP 107/53
[2019-07-27] MEDS: LACTOBACILLUS RHAMNOSUS GG 1 CAPSULE. PO SCH (21:13)
[2019-07-27 23:00] VITALS: BP 122/75
[2019-07-28] MEDS: PIPERACILLIN/TAZOBACTAM 3.375 GM in IV NORMAL SALINE 50ML 50 ML IV SCH ×3 (00:05→12:00)
[2019-07-28] MEDS: oxyCODONE/APAP 5/325 1 TAB TABLET PO PRN ×3 (01:47→10:54)
[2019-07-28 03:00] VITALS: BP 107/51
[2019-07-28 07:00] VITALS: BP 113/54
[2019-07-28] MEDS: IPRATRPIUM/ALBUTEROL 0.5/2.5MG 3 ML NEBU. NEB SCH ×2 (07:33→11:23)
[2019-07-28] MEDS: BUDESONIDE 0.5 MG/2 ML NEBU. NEB SCH (07:33)
[2019-07-28 07:40] LABS: CALCIUM 7.7 mg/dL (8.5-10.1); CREATININE 0.9 mg/dL (0.6-1.0); GFR 62.8; POTASSIUM 3.8 mmol/L (3.5-5.1)
[2019-07-28 07:44] LABS: BASO % 0 % (0-3); EOS # 0.1 x10^3/uL (0.0-0.7); EOS % 2 % (0-3); HEMOGLOBIN 10.6 g/dL (12.0-15.5); LYMPH # 0.7 x10^3/uL (1.0-4.8); LYMPH % 13 % (24-48); MEAN CORPUSCULAR HEMOGLOBIN 30 pg (25-35); MEAN CORPUSCULAR HGB CONC 34 g/dL (31-37); MEAN CORPUSCULAR VOLUME 87 fL (79-100); MONO # 0.4 x10^3/uL (0.0-1.1); MONO % 7 % (0-9); NEUT # 4.2 x10^3/uL (1.8-7.7); NEUT % 78 % (31-73); PLATELET COUNT 159 x10^3/uL (140-400); RED BLOOD COUNT 3.56 x10^6/uL (3.50-5.40); RED CELL DISTRIBUTION WIDTH 13.6 % (11.5-14.5); WHITE BLOOD COUNT 5.4 x10^3/uL (4.0-11.0)
--- NOTE | 2019-07-28 08:43 | PDOC ---
PULMONARY PROGRESS NOTES Subjective on , didnt use cpap last night but uses cpap during sleep at home, denies sob, abd pain better, has occ cough Vitals Vital Signs Date Time Temp Pulse Resp B/P (MAP) Pulse Ox O2 Delivery O2 Flow Rate FiO2 07/28/19 07:35 98 Room Air 07/28/19 07:00 98.6 82 12 113/54 (73) 98.6 07/28/19 06:40 2.0 General: Alert, Oriented X4 HEENT: Other (nc at perrl nose throat clear) Lungs: Clear Cardiovascular: S1, S2 Abdomen: Other (distended) Neuro Exam: Alert, Oriented Extremities: No Edema Skin: Warm Labs Laboratory Tests Test 07/26/19 10:55 07/27/19 05:50 07/28/19 05:50 Coronavirus (COVID-19)(PCR) Negative (NEGATIVE) Sodium Level 141 mmol/L (136-145) 140 mmol/L (136-145) Potassium Level 4.1 mmol/L (3.5-5.1) 3.8 mmol/L (3.5-5.1) Chloride Level 105 mmol/L (98-107) 105 mmol/L (98-107) Carbon Dioxide Level 28 mmol/L (21-32) 30 mmol/L (21-32) Anion Gap 8 (6-14) 5 (6-14) Blood Urea Nitrogen 8 mg/dL (7-20) 8 mg/dL (7-20) Creatinine 0.9 mg/dL (0.6-1.0) 0.9 mg/dL (0.6-1.0) Estimated GFR (Cockcroft-Gault) 62.8 62.8 Glucose Level 146 mg/dL (70-99) 118 mg/dL (70-99) Calcium Level 7.4 mg/dL (8.5-10.1) 7.7 mg/dL (8.5-10.1) Magnesium Level 2.3 mg/dL (1.8-2.4) White Blood Count 5.4 x10^3/uL (4.0-11.0) Red Blood Count 3.56 x10^6/uL (3.50-5.40) Hemoglobin 10.6 g/dL (12.0-15.5) Hematocrit 31.0 % (36.0-47.0) Mean Corpuscular Volume 87 fL (79-100) Mean Corpuscular Hemoglobin 30 pg (25-35) Mean Corpuscular Hemoglobin Concent 34 g/dL (31-37) Red Cell Distribution Width 13.6 % (11.5-14.5) Platelet Count 159 x10^3/uL (140-400) Neutrophils (%) (Auto) 78 % (31-73) Lymphocytes (%) (Auto) 13 % (24-48) Monocytes (%) (Auto) 7 % (0-9) Eosinophils (%) (Auto) 2 % (0-3) Basophils (%) (Auto) 0 % (0-3) Neutrophils # (Auto) 4.2 x10^3/uL (1.8-7.7) Lymphocytes # (Auto) 0.7 x10^3/uL (1.0-4.8) Monocytes # (Auto) 0.4 x10^3/uL (0.0-1.1) Eosinophils # (Auto) 0.1 x10^3/uL (0.0-0.7) Basophils # (Auto) 0.0 x10^3/uL (0.0-0.2) Laboratory Tests Test 07/28/19 05:50 White Blood Count 5.4 x10^3/uL (4.0-11.0) Red Blood Count 3.56 x10^6/uL (3.50-5.40) Hemoglobin 10.6 g/dL (12.0-15.5) Hematocrit 31.0 % (36.0-47.0) Mean Corpuscular Volume 87 fL (79-100) Mean Corpuscular Hemoglobin 30 pg (25-35) Mean Corpuscular Hemoglobin Concent 34 g/dL (31-37) Red Cell Distribution Width 13.6 % (11.5-14.5) Platelet Count 159 x10^3/uL (140-400) Neutrophils (%) (Auto) 78 % (31-73) Lymphocytes (%) (Auto) 13 % (24-48) Monocytes (%) (Auto) 7 % (0-9) Eosinophils (%) (Auto) 2 % (0-3) Basophils (%) (Auto) 0 % (0-3) Neutrophils # (Auto) 4.2 x10^3/uL (1.8-7.7) Lymphocytes # (Auto) 0.7 x10^3/uL (1.0-4.8) Monocytes # (Auto) 0.4 x10^3/uL (0.0-1.1) Eosinophils # (Auto) 0.1 x10^3/uL (0.0-0.7) Basophils # (Auto) 0.0 x10^3/uL (0.0-0.2) Sodium Level 140 mmol/L (136-145) Potassium Level 3.8 mmol/L (3.5-5.1) Chloride Level 105 mmol/L (98-107) Carbon Dioxide Level 30 mmol/L (21-32) Anion Gap 5 (6-14) Blood Urea Nitrogen 8 mg/dL (7-20) Creatinine 0.9 mg/dL (0.6-1.0) Estimated GFR (Cockcroft-Gault) 62.8 Glucose Level 118 mg/dL (70-99) Calcium Level 7.7 mg/dL (8.5-10.1) Medications Active Scripts Medications Dose Route/Sig Max Daily Dose Days Date Category Property Appraiser Thyroid (Thyroid,Pork) 30 Mg Tablet 1 Tab PO DAILY 30 07/26/19 Reported Hydrocodone-Acetamin 10-325 mg (Hydrocodone/Acetaminophen) 1 Each Tablet 1 Each PO HS 07/26/19 Reported Proair Hfa (Albuterol Sulfate) 8.5 Gm Hfa.aer.ad 1 Puff INH PRN Q6HRS PRN 07/26/19 Reported Proair Hfa (Albuterol Sulfate) 8.5 Gm Hfa.aer.ad 2 Puff IH PRN Q4-6HRS PRN 21 07/26/19 Reported Metformin Hcl 500 Mg Tablet 500 Mg PO HS 07/26/19 Reported Livalo (Pitavastatin Calcium) 2 Mg Tablet 1 Tab PO HS 30 07/26/19 Reported Fluoxetine Hcl 20 Mg Capsule 1 Cap PO DAILY 07/26/19 Reported Triamterene 50 Mg Capsule 37.5 Mg PO DAILY08 07/26/19 Reported Gabapentin 600 Mg Tablet 600 Mg PO HS 07/26/19 Reported Metoprolol Tartrate 25 Mg Tablet 1 Tab PO HS 07/26/19 Reported Comments cxr reviewed No acute radiographic abnormality is seen. Impression . IMPRESSION: 1. Acute appendicitis, s/p appendectomy pod #2 2. The patient with history of asthma, under reasonable control and no flareups at present, on home Advair. Triggers are usually allergies as well as humidity. 3. History of obstructive sleep apnea, on home CPAP with good compliance and no residual hypersomnia, likely has a component of obesity hypoventilation syndrome. She had a low oxygen level when she had general anesthetic on prior surgery and this needs to be watched post surgery, especially when she would require postop narcotics. Plan . RECOMMENDATIONS: 1. 02 titration, IS, avoid over sedation 2. cont bronchodilators including DuoNebs and Pulmicort. 3. CPAP during sleep 4. Weight loss is strongly emphasized. 5. chest x-ray reviewed. 6. We will follow along with you. Discussed with RN, pt. TANK NERI MD Jul 28, 2019 08:43
[2019-07-28] MEDS: LACTOBACILLUS RHAMNOSUS GG 1 CAPSULE. PO SCH (08:46)
[2019-07-28 11:00] VITALS: BP 114/55
[2019-07-28] MEDS ORDERED: OXYC1TAB19 PO (12:02)
--- NOTE | 2019-07-28 12:04 | DISCH ---
DISCHARGE INSTRUCTIONS Condition on Discharge Condition on Discharge: Stable Activity After Discharge Activity Instructions for Disc: Activity as tolerated, Avoid exertion Lifting Instructions after Dis: No heavy lifting Driving Instructions after Dis: Do not drive Diet after Discharge Diet after Discharge: Regular Wound Incision Care Wound/Incision Care: Ice to area for comfort Other wound/incision instructi: mirta shower Follow-Up Follow up with: Jason in [place] office 07/31 TRAY MITCHELL MD Jul 28, 2019 12:04
--- NOTE | 2019-07-28 14:23 | NUR ---
pit discharged home with . instructions provided on emptying LJ drain, activity, incision care, follow up, medications. pt v/u. IV removed, cath intact.
--- NOTE | 2019-07-30 17:06 | PATHOLOGY ---
[facility] Accession Number: [id number] . 01 Material submitted: . appendix - APPENDIX . 01 Clinical history: . Acute appendicitis . 02 Diagnosis: Appendix, laparoscopic appendectomy: - Acute suppurative appendicitis with serosal exudate and acute mesoappendicitis. (JP:mm; 07/30/2019) [facility] 07/30/2019 1657 Local . 02 Comment: There is no evidence of rupture. There is no evidence of malignancy. . 02 Electronically signed: . Brody Villaseñor MD, Pathologist NPI- [id number] . 01 Gross description: . The specimen is received in formalin, labeled "Isabel Pretty, appendix". Received is a vermiform appendix measuring 9.4 cm in length by up to 0.5 cm in diameter with a moderate amount of attached mesoappendix. The serosal surface is pale desai to dusky reis-brown and shaggy in appearance with an area of possible perforation identified measuring 0.3 cm, which is located 6.1 cm from the proximal margin. The serosal surface surrounding a possible area of perforation is inked blue. The surgical margin is closed with a line of mc. The mc are removed the new margin is inked black. Sectioning reveals a pinpoint to dilated lumen filled with fecal material. The specimen is submitted representatively as follows: . A1-A2 proximal margin and entire bisected tip A3 area of possible perforation A4 additional cross sections of appendix. (CAA; 07/29/2019) [facility] 07/29/2019 1708 Local . 02 Pathologist provided ICD-10: K35.80 . 02 CPT . 728187 Specimen Comment: A courtesy copy of this report has been sent to [phone], [phone] Specimen Comment: [id number] Specimen Comment: Report sent to / DR RODRIGUES Performed at: [address], [place] [id number] MD Keanu Henry MD Phone: [phone] [facility] [address] [place] [id number] MD Brody Villaseñor MD Phone: [phone]
--- NOTE | 2019-08-16 13:36 | PDOC3 ---
Discharge Summary Date of Admission: Jul 26, 2019 Date of Discharge: Jul 28, 2019 Problems: (1) Acute appendicitis FINAL DIAGNOSIS Acute appendicitis Brief Hospital Course Ms. Pretty is a 64 old female who presented with red abdominal pain, sloughing the right lower quadrant associated with nausea and vomiting. Has had CAT scan of the abdomen I which showed that she has acute appendicitis. Was transferred to [facility] underwent laparoscopic appendectomy successfully. Her postoperative period was uneventful. She was discharged home she was continued on oral antibiotic should follow with surgical team in 2 weeks time. Discharge Medications Current Medications Fentanyl Citrate (Fentanyl 2ml Vial) 50 mcg PRN Q3HRS PRN IVP PAIN Last administered on 07/26/19at 08:49; Start 07/25/19 at 20:00; Stop 07/26/19 at 11:09; Status DC Ondansetron HCl (Zofran) 4 mg PRN Q4HRS PRN IVP NAUSEA/VOMITING Last administered on 07/26/19at 02:41; Start 07/25/19 at 20:00; Stop 07/28/19 at 14:26; Status DC Piperacillin Sod/ Tazobactam Sod 3.375 gm/Sodium Chloride 50 ml @ 100 mls/hr Q6HRS IV Last administered on 07/28/19at 06:16; Start 07/26/19 at 00:00; Stop 07/28/19 at 14:26; Status DC Potassium Chloride/Dextrose/ Sod Cl 1,000 ml @ 100 mls/hr Q10H IV Last administered on 07/26/19at 05:41; Start 07/25/19 at 20:00; Stop 07/26/19 at 10:02; Status DC Ondansetron HCl (Zofran) 4 mg PRN Q6HRS PRN IV NAUSEA/VOMITING; Start 07/26/19 at 07:00; Stop 07/27/19 at 06:59; Status DC Fentanyl Citrate (Fentanyl 2ml Vial) 25 mcg PRN Q5MIN PRN IV MILD PAIN 1-3; Start 07/26/19 at 07:00; Stop 07/27/19 at 06:59; Status DC Fentanyl Citrate (Fentanyl 2ml Vial) 50 mcg PRN Q5MIN PRN IV MODERATE TO SEVERE PAIN; Start 07/26/19 at 07:00; Stop 07/27/19 at 06:59; Status DC Morphine Sulfate (Morphine Sulfate) 1 mg PRN Q10MIN PRN IV SEVERE PAIN 7-10; Start 07/26/19 at 07:00; Stop 07/27/19 at 06:59; Status DC Ringer's Solution 1,000 ml @ 30 mls/hr Q24H IV ; Start 07/26/19 at 06:58; Stop 07/26/19 at 18:57; Status DC Lidocaine HCl (Xylocaine-Mpf 1% 2ml Vial) 2 ml PRN 1X PRN ID PRIOR TO IV START; Start 07/26/19 at 07:00; Stop 07/27/19 at 06:59; Status DC Hydromorphone HCl (Dilaudid) 0.5 mg PRN Q10MIN PRN IV SEV PAIN, Second choice; Start 07/26/19 at 07:00; Stop 07/27/19 at 06:59; Status DC Prochlorperazine Edisylate (Compazine) 5 mg PACU PRN PRN IV NAUSEA, MRX1; Start 07/26/19 at 07:00; Stop 07/27/19 at 06:59; Status DC Albuterol/ Ipratropium (Duoneb) 3 ml RTQID NEB Last administered on 07/28/19at 07:33; Start 07/26/19 at 12:00; Stop 07/28/19 at 14:26; Status DC Budesonide (Pulmicort) 0.5 mg RTBID NEB Last administered on 07/28/19at 07:33; Start 07/26/19 at 20:00; Stop 07/28/19 at 14:26; Status DC Magnesium Sulfate 50 ml @ 25 mls/hr 1X ONCE IV Last administered on 07/26/19at 11:28; Start 07/26/19 at 10:15; Stop 07/26/19 at 12:14; Status DC Potassium Chloride/Dextrose/ Sod Cl 1,000 ml @ 75 mls/hr [id number] IV Last administered on 07/27/19at 03:08; Start 07/26/19 at 10:00; Stop 07/27/19 at 10:41; Status DC Morphine Sulfate (Morphine Sulfate) 4 mg PRN Q4HRS PRN IV MODERATE PAIN Last administered on 07/27/19at 19:20; Start 07/26/19 at 11:15; Stop 07/28/19 at 14:26; Status DC Succinylcholine Chloride (Anectine) 200 mg STK-MED ONCE .ROUTE ; Start 07/26/19 at 13:57; Stop 07/26/19 at 13:57; Status DC Rocuronium [place] (Zemuron) 50 mg STK-MED ONCE .ROUTE ; Start 07/26/19 at 13:57; Stop 07/26/19 at 13:57; Status DC Fentanyl Citrate (Fentanyl 2ml Vial) 100 mcg STK-MED ONCE .ROUTE ; Start 07/26/19 at 13:57; Stop 07/26/19 at 13:58; Status DC Neostigmine [place] (Neostigmine Methylsulfate) 5 mg STK-MED ONCE .ROUTE ; Start 07/26/19 at 13:57; Stop 07/26/19 at 13:58; Status DC Midazolam HCl (Versed) 2 mg STK-MED ONCE .ROUTE ; Start 07/26/19 at 13:58; Stop 07/26/19 at 13:58; Status DC Glycopyrrolate (Robinul) 1 mg STK-MED ONCE .ROUTE ; Start 07/26/19 at 13:58; Stop 07/26/19 at 13:58; Status DC Dexamethasone Sodium Phosphate (Decadron) 4 mg STK-MED ONCE .ROUTE ; Start 07/26/19 at 13:58; Stop 07/26/19 at 13:58; Status DC Ondansetron HCl (Zofran) 4 mg STK-MED ONCE .ROUTE ; Start 07/26/19 at 13:58; Stop 07/26/19 at 13:58; Status DC Lidocaine HCl (Lidocaine Pf 2% Vial) 5 ml STK-MED ONCE .ROUTE ; Start 07/26/19 at 13:58; Stop 07/26/19 at 13:58; Status DC Propofol (Diprivan) 200 mg STK-MED ONCE IV ; Start 07/26/19 at 13:58; Stop 07/26/19 at 13:58; Status DC Bupivacaine HCl/ Epinephrine Bitart (Sensorcain-Epi 0.5%-1:230338 Mpf) 30 ml STK-MED ONCE .ROUTE Last administered on 07/26/19at 16:15; Start 07/26/19 at 15:26; Stop 07/26/19 at 15:26; Status DC Phenylephrine HCl (PHENYLEPHRINE in 0.9% NACL PF) 1 mg STK-MED ONCE IV ; Start 07/26/19 at 16:05; Stop 07/26/19 at 16:05; Status DC Cellulose (Surgicel Hemostat 4x8) 1 each STK-MED ONCE .ROUTE ; Start 07/26/19 at 16:38; Stop 07/26/19 at 16:38; Status DC Fentanyl Citrate (Fentanyl 2ml Vial) 100 mcg STK-MED ONCE .ROUTE ; Start 07/26/19 at 16:49; Stop 07/26/19 at 16:49; Status DC Fentanyl Citrate (Fentanyl 2ml Vial) 50 mcg PRN Q3HRS PRN IVP SEVERE PAIN 7-10 Last administered on 07/27/19at 01:50; Start 07/27/19 at 01:45; Stop 07/28/19 at 14:26; Status DC Oxycodone/ Acetaminophen (Percocet 5/325) 1 tab PRN Q4HRS PRN PO PAIN Last administered on 07/28/19at 10:54; Start 07/27/19 at 10:15; Stop 07/28/19 at 14:26; Status DC Oxycodone/ Acetaminophen (Percocet 5/325) 1 tab PRN Q4HRS PRN PO PAIN; Start 07/27/19 at 10:30; Status UNV Potassium Chloride 40 meq/ Dextrose/Sodium Chloride 1,020 ml @ 75 mls/hr [id number] IV Last administered on 07/27/19at 12:38; Start 07/27/19 at 11:00; Stop 07/28/19 at 14:26; Status DC Lactobacillus Rhamnosus (Culturelle) 1 cap BID PO Last administered on 07/28/19at 08:46; Start 07/27/19 at 21:00; Stop 07/28/19 at 14:26; Status DC Active Scripts Active Percocet 7.5-325 Mg Tablet (Oxycodone/Acetaminophen) 1 Each Tablet 1 Tab PO PRN Q6HRS PRN 7 Days Reported Roofing Apprentice Thyroid (Thyroid,Pork) 30 Mg Tablet 1 Tab PO DAILY 30 Days Proair Hfa (Albuterol Sulfate) 8.5 Gm Hfa.aer.ad 1 Puff INH PRN Q6HRS PRN Proair Hfa (Albuterol Sulfate) 8.5 Gm Hfa.aer.ad 2 Puff IH PRN Q4-6HRS PRN 21 Days Metformin Hcl 500 Mg Tablet 500 Mg PO HS Livalo (Pitavastatin Calcium) 2 Mg Tablet 1 Tab PO HS 30 Days Fluoxetine Hcl 20 Mg Capsule 1 Cap PO DAILY Triamterene 50 Mg Capsule 37.5 Mg PO DAILY08 Gabapentin 600 Mg Tablet 600 Mg PO HS Metoprolol Tartrate 25 Mg Tablet 1 Tab PO HS Allergies Allergies Coded Allergies Type Severity Reaction Last Updated Verified No Known Medication Allergies Allergy Unknown 07/25/19 Yes Disposition/Orders: D/C to Home Patient Instructions Follow-up with the surgical team. Justicifation of Admission Dx: Justifications for Admission: Justification of Admission Dx: N/A HAI RODRIGUES MD Aug 16, 2019 13:36
== END 2019-07-28 14:26 | disposition home or self-care (01) | DRG 342 ==
LOC: 4 NORTH 19:25
PROVIDERS: ADMIT Internal Medicine; ATTEND Internal Medicine
PROC: 0DTJ4ZZ Resection of Appendix, Percutaneous Endoscopic Approach (ICD-10-PCS; principal; 2019-07-26 11:00)
DX: K35.80 Unspecified acute appendicitis (principal); N39.0 Urinary tract infection, site not specified; E66.2 Morbid (severe) obesity with alveolar hypoventilation; D18.00 Hemangioma unspecified site; E03.9 Hypothyroidism, unspecified; E11.9 Type 2 diabetes mellitus without complications; E78.5 Hyperlipidemia, unspecified; E87.6 Hypokalemia; F32.9 Major depressive disorder, single episode, unspecified; I10 Essential (primary) hypertension; J45.909 Unspecified asthma, uncomplicated; K21.9 Gastro-esophageal reflux disease without esophagitis; K76.0 Fatty (change of) liver, not elsewhere classified; M43.10 Spondylolisthesis, site unspecified; Z68.34 Body mass index [BMI] 34.0-34.9, adult; Z20.828 Contact with and (suspected) exposure to other viral communicable diseases
CPT/HCPCS: 36415; 71045; 74018; 80048; 80053; 83735; 85025; 85610; 88304; 94640; 94660; A7015; G0238; J0330; J1100; J2250; J2270; J2370; J2405; J2543; J2704; J2710; J3010; J3475; J3480; J3490; J7030; J7042; 97116-GP; 97530-GO; 97530-GP; G0378; J7626; U0003-CS

== ENCOUNTER → 2020-03-03 | Outpatient (CLI) | payer MEDICARE ==
[~2020-03-03] MED LIST: ALBU2.5V8 IH; ALBU2.5V8 INH; FLUO20CA20 PO; GABA600T7 PO; HYDR-2767 PO; METF500T16 PO; METO25TA4 PO; OXYC1TAB19 PO; PITA2TAB2 PO; THYR30TA2 PO; TRIA50CA3 PO
--- NOTE | 2020-03-03 17:00 | KCIC ---
MR CERVICAL SPINE WO History:Reason: DEGENERATIVE DISC DISEASE / Spl. Instructions: / History: Neck pain for yrs. MARGAUXE raza branch. Technique: Multiplanar, multi sequential noncontrast MR imaging was performed of the cervical spine. Comparison: Thyroid ultrasound February 27, 2020 Findings: Slight grade 1 anterolisthesis C4 on C5. Normal vertebral body height. No fracture. No canal narrowing. Right uncovertebral bilateral facet arthropathy. Mild right neuroforaminal narrow ing. C2-C3: Disc bulge. No canal narrowing. Facet arthropathy. Mild right neuroforaminal narrowing. C3-C4: Small disc bulge. No canal narrowing. Facet arthropathy. Mild right neuroforaminal narrowing. C4-C5 Anterolisthesis. Disc uncovering. No canal or neuroforaminal narrowing. Facet arthropathy. C5-C6: Posterior disc osteophyte complex. Minimal canal narrowing. Cord flattening. Uncovertebral an d facet arthropathy. Severe left and moderate right neuroforaminal narrowing. C6-C7: Posterior disc osteophyte complex. No canal narrowing. Cord flattening. Uncovertebral and fac et arthropathy. Severe left neuroforaminal narrowing. C7-T1: No canal narrowing. Facet arthropathy. No neuroforaminal narrowing. Poorly characterized left thyroid nodule. Findings better characterize on recently performed thyroid ultrasound. Impression: 1. Multilevel cervical spondylosis most prominent C5-C6 and C6-C7. 2. Severe neural foraminal narrowing left C5-C6 and C6-C7. 3. Grade 1 anterolisthesis C4 on C5. Electronically signed by: Param Denise DO (03/03/2020 4:58 PM) [id number]
== END ==
LOC: KCIC MRI 12:20
PROVIDERS: ATTEND Physician Assistant Medical
DX: M47.815 Spondylosis without myelopathy or radiculopathy, thoracolumbar region (principal); M48.02 Spinal stenosis, cervical region
CPT/HCPCS: 72141

== ENCOUNTER → 2020-04-17 | Outpatient (CLI) | payer MEDICARE ==
[~2020-04-17] MED LIST changes: +IOHEXOL 180 MG/ML 10 ML VIAL. ONE; +methylPREDNISolone ACETATE 40 MG/ML VIAL. ONE; +methylPREDNISolone ACETATE 80 MG/ML VIAL. ONE
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
== END | disposition home or self-care (01) ==
LOC: PNCL 08:19
PROVIDERS: ATTEND Anesthesiology
DX: M54.2 Cervicalgia (principal); M79.602 Pain in left arm; I10 Essential (primary) hypertension; M19.90 Unspecified osteoarthritis, unspecified site; E03.9 Hypothyroidism, unspecified; E78.00 Pure hypercholesterolemia, unspecified; F32.9 Major depressive disorder, single episode, unspecified; Z79.899 Other long term (current) drug therapy; Z98.890 Other specified postprocedural states; Z82.49 Family history of ischemic heart disease and other diseases of the circulatory system
CPT/HCPCS: 62321; J1030; J1040; Q9965; 77002

== ENCOUNTER → 2020-05-08 | Outpatient (CLI) | payer MEDICARE ==
[~2020-05-08] MED LIST changes: -IOHEXOL 180 MG/ML 10 ML VIAL. ONE; -methylPREDNISolone ACETATE 40 MG/ML VIAL. ONE; -methylPREDNISolone ACETATE 80 MG/ML VIAL. ONE
--- NOTE | 2020-05-08 08:45 | PDOC ---
Progress Note - Pain Clinic Date of Service: DOS: DATE: 05/08/20 TIME: 08:41 Diagnosis: Dx: Cervical radiculopathy with cervical degenerative disease and cervical spinal stenosis Lumbar radiculopathy with lumbar degenerative disc disease History or Present Illness: HPI: 64-year-old female returns for follow-up status post cervical epidural to injection x1. Patient reports about 99% improvement in her neck and upper extremity pain. Patient reports he is increasing activity with greater ease and comfort doing work activities household activities travel with greater ease and comfort reports her pain in the neck and shoulder is a 3 on scale 10 at its worst over the past week 2 on average 1 at its least and is a 1 today. Patient reports her main complaint is low back pain with pain in the bilateral lower extremities to the feet mostly the posterior gluteus posterior thighs also lateral thighs and into the lower legs and feet as well as aching dull and tight at times a burning sensation in the back is cramping as well with radiating to the lower extremities. Patient reports otherwise doing very well she been sleeping much better at night working with much greater ease and comfort and is overall very progress thus far. Patient reports no new motor or sensory deficits no bowel or bladder incontinence or other complaints. Physical Exam: VS: Blood pressure is 123/75 pulse 81 respirations 18 temperature 98.7 F 5 inches weight is 234 pounds PE: PHYSICAL EXAMINATION: GENERAL: The patient is awake, alert, oriented, appropriate, very pleasant demeanor HEENT: Shows normocephalic, atraumatic. Extraocular movements are intact and symmetrical. Patient wearing eyeglasses oral cavity: Mucous membranes moist and pink. Dentition is intact. NECK: Shows anterior throat supple without palpable lymphadenopathy noted. Swallow reflex symmetrical. CHEST: Shows normal on inspection. Breath sounds are clear bilaterally. HEART: Shows S1, S2 clear. No murmurs auscultated. ABDOMEN: Soft, nontender, nondistended, obese. No palpable organomegaly is noted. BACK: Shows spine grossly in the midline. Normal-appearing cervical lordotic curvature. Cervical paraspinous muscles show symmetrical inspection, on palpation shows some moderate tenderness but only diffusely in the inferior aspect the cervical paraspinous musculature without radiation without trigger points. Patient shows good rotation motion cervical spine both laterally as well as full extension full forward flexion without significant difficulty or pain reported. There is slightly increased thoracic kyphosis, some minor flattening of the lumbar lordotic curvature. Lumbar paraspinous muscles show symmetrical on inspection, on palpation shows some moderate tenderness diffusely throughout the upper, middle and lower distribution of the paraspinous muscles bilaterally and also into the lower thoracic paraspinous musculature, firm and tender, but without specific trigger points, without radiation of pain. The patient has good rotational motion of the lumbar spine, both laterally as well as extension and flexion without significant difficulty. EXTREMITIES: Lower extremities show deep tendon reflexes 1+ in the patellar and tendo calcaneus tendons. Motor exam is 5 on a scale of 5 with right dorsi flexion, extension, quadriceps and hamstring flexion and 5/5 on the left. Peripheral pulses are 1 posterior tibial. No peripheral edema is noted bilaterally. Lower extremities are warm and dry to touch, equal in color and appearance. Upper extremities show deep tendon reflexes 2+ in the bicep triceps tendons, motor exam strong with 5 out of 5 assisted living home director strength bicep and tricep flex ion and is symmetrical on exam today. Peripheral pulses are 2+ radial no peripheral edema is noted. SKIN: Shows warm and dry, good turgor. No edema. No sores, rashes or bruising throughout. Procedure: Procedure: Options were discussed with the patient. Patient chart reviews her current medication regimen updated current view of systems updated today as well. We will proceed with ordering of MRI scan of the lumbar spine as patient has clinical radicular symptoms and low back pain. Patient continue with stretching strength exercises in the meantime also oral analgesics as currently. Once MRI scan results are obtained we will review these with the patient and develop plan of care at that time. Medication Injected: Med Injected: None Condition at Discharge: Condition at Discharge: Condition at discharge is stable. KEVYN CAMPBELL MD May 08, 2020 08:45
== END | disposition home or self-care (01) ==
LOC: PNCL 08:04
PROVIDERS: ATTEND Anesthesiology
DX: M50.10 Cervical disc disorder with radiculopathy, unspecified cervical region (principal); M48.02 Spinal stenosis, cervical region; M51.16 Intervertebral disc disorders with radiculopathy, lumbar region; E78.00 Pure hypercholesterolemia, unspecified; I10 Essential (primary) hypertension; F32.9 Major depressive disorder, single episode, unspecified; Z79.899 Other long term (current) drug therapy; Z98.890 Other specified postprocedural states
CPT/HCPCS: 99212; G0463

== ENCOUNTER → 2020-05-14 | Outpatient (CLI) | payer MEDICARE ==
--- NOTE | 2020-05-14 15:25 | KCIC ---
EXAMINATION: Magnetic resonance imaging (MRI) of the lumbar spine without contrast 05/14/2020 11:03 AM HISTORY: Lumbar radiculopathy. Progressing low back pain and leg weakness. TECHNIQUE: Multiplanar multi-weighted MRI of the lumbar spine was performed without intravenous contr ast using the standard lumbar spine protocol. Contrast information: None administered. COMPARISON: None available. FINDINGS: Minimal retrolisthesis of L3 on L4. There is grade 1 anterolisthesis of L5 on S1 measuring 6 mm. Planting Supervisor samir appearing bilateral L5 pars defects are identified. Vertebral body heights are maintained. Modera te disc height loss is identified at L3-L4 with endplate irregularity and Modic type II endplate dege nerative changes. No significant marrow edema. There is disc desiccation and disc height loss at L2-L 3, L3-L4, L4-L5 and L5-S1. Moderate disc height loss L5-S1 with Modic type II endplate degenerative c hanges. Conus medullaris remains at L1. Distal spinal cord signal intensity is normal in all sequence s. Abdominal aorta is normal in caliber. No suspicious retroperitoneal abnormality is identified. L2-L3: There is a sequential disc bulge. Mild facet arthropathy. Mild left neuroforaminal stenosis. M ild spinal canal stenosis. L3-L4: There is a moderate circumferential disc bulge asymmetric to the left. Mild left facet arthrop athy with ligamentum flavum infolding. Moderate to severe left neural foraminal stenosis. Mild to mod erate spinal canal stenosis with left lateral recess stenosis. L4-L5: There is a circumferential disc bulge. Moderate to severe right facet arthropathy. Moderate bi lateral neuroforaminal stenosis, right greater than left. Mild spinal canal stenosis. There is narrow ing of the left lateral recess. L5-S1: There is circumferential disc bulge. Moderate facet arthropathy. Moderate to severe bilateral neuroforaminal stenosis. No spinal canal stenosis. IMPRESSION: Moderate degenerative changes of lumbar spine, as described in detail above. Electronically signed by: Corinna Cooper MD (05/14/2020 3:22 PM) [id number]
== END | disposition home or self-care (01) ==
LOC: KCIC MRI 10:43
PROVIDERS: ATTEND Anesthesiology
DX: M51.16 Intervertebral disc disorders with radiculopathy, lumbar region (principal); M48.061 Spinal stenosis, lumbar region without neurogenic claudication; R53.1 Weakness; I10 Essential (primary) hypertension; E78.00 Pure hypercholesterolemia, unspecified; F41.9 Anxiety disorder, unspecified; Z79.899 Other long term (current) drug therapy; Z98.890 Other specified postprocedural states; Z88.0 Allergy status to penicillin; Z88.8 Allergy status to other drugs, medicaments and biological substances
CPT/HCPCS: 72148

== ENCOUNTER → 2020-05-26 | Outpatient (CLI) | payer MEDICARE ==
[~2020-05-26] MED LIST changes: +IOHEXOL 180 MG/ML 10 ML VIAL. ONE; +methylPREDNISolone ACETATE 40 MG/ML VIAL. ONE; +methylPREDNISolone ACETATE 80 MG/ML VIAL. ONE
--- NOTE | 2020-05-26 08:51 | PDOC ---
Progress Note - Pain Clinic Date of Service: DOS: DATE: 05/26/20 TIME: 08:49 Diagnosis: Dx: Cervical radiculopathy with cervical degenerative disease and cervical spinal stenosis Lumbar radiculopathy with lumbar degenerative disc disease History or Present Illness: HPI: 54-year-old female returns follow-up status post cervical epidural steroid action x1. Patient ports right 99% improvement in her neck and arm pain but the main complaint is her low back and right lower extremity pain. Patient reports it is increasing with walking standing changing position pain across the low back radiating to right lower extremity described as tingling and burning aching tight in the back radiating to right leg on and off in intensity worse with standing worse with walking better sitting or laying down but awakens her from sleep about every 5-6 hours patient reports no new motor or sensory deficits no new bowel or bladder incontinence but the pain in the low back right leg is becoming significantly more noticeable. Patient reports he is taking Motrin 3 times a day also taking hydrocodone at night as well as gabapentin which makes it more tolerable but still does not relieve the pain. Patient rates her pain as a 9 on scale 10 is worse over the past week 5 on average to its least is a 5 today. Patient reports no new motor or sensory deficits no new bowel or bladder incontinence. Physical Exam: VS: Blood pressure is 123/68 pulse 84 respirations 16 temperature is 98.2 F weight is 235 pounds PE: PHYSICAL EXAMINATION: GENERAL: The patient is awake, alert, oriented, appropriate, very pleasant demeanor HEENT: Shows normocephalic, atraumatic. Extraocular movements are intact and symmetrical. Oral cavity: Mucous membranes moist and pink. Dentition is intact. NECK: Shows anterior throat supple without palpable lymphadenopathy noted. Swallow reflex symmetrical. CHEST: Shows normal on inspection. Breath sounds are clear bilaterally. HEART: Shows S1, S2 clear. No murmurs auscultated. ABDOMEN: Soft, nontender, nondistended, obese. No palpable organomegaly is noted. No rebound or guarding demonstrated. BACK: Shows spine grossly in the midline. Normal-appearing cervical lordotic curvature. There is slightly increased thoracic kyphosis, some minor flattening of the lumbar lordotic curvature. Lumbar paraspinous muscles show symmetrical on inspection, on palpation shows some moderate tenderness diffusely throughout the upper, middle and lower distribution of the paraspinous muscles without spec ific trigger points, without radiation of pain. The patient has good rotational motion of the lumbar spine, both laterally as well as extension and flexion without significant difficulty. EXTREMITIES: Lower extremities show deep tendon reflexes 1+ in the patellar and tendo calcaneus tendons. Motor exam is 5 on a scale of 5 with right dorsiflexion, extension, quadriceps and hamstring flexion and 5/5 on the left. Peripheral pulses are 1+ posterior tibial. No peripheral edema is noted bilaterally. Lower extremities are warm and dry to touch, equal in color and appearance. SKIN: Shows warm and dry, good turgor. No edema. No sores, rashes or bruising throughout. Procedure: Procedure: Options discussed with patient. Patient chart reviews her current medication regimen updated current review of systems updated today as well. We will proceed with a lumbar epidural steroid injection stable fluoroscopic guidance. Risks were discussed including but not limited to: Bleeding, infection, possibility of epidural hematoma and subsequent neurological compromise, dural puncture, headaches, spinal cord and/or nerve damage, side effects of steroid medication, and poor results regarding pain control. Patient understands and wished to proceed. Patient return to clinic in approximate 2 weeks for follow- up was counseled as return appointment activity level and side effects to be aware of. Medication Injected: Med Injected: Procedure is lumbar epidural steroid injection under local anesthetic using sterile prep and drape at the L4-5 level using C-arm fluoroscopic guidance in both AP and lateral views medications injected is 120 mg Depo-Medrol + 10 mL preservative-free normal saline and 2 mL contrast- condition at discharge is stable patient tolerated procedure well had no complications. Condition at Discharge: Condition at Discharge: Condition at discharge is stable, patient tolerated procedure well and had no complications. KEVYN CAMPBELL MD May 26, 2020 08:51
--- NOTE | 2020-05-26 08:52 | PDOC4 ---
PROCEDURE Procedure Patient was consented for lumbar epidural steroid injection. Risks were dis cussed including but not limited to: Bleeding, infection, possibility of epidural hematoma and subsequent neurological compromise, dural puncture, headaches, spinal cord and/or nerve damage, side effects of steroid medication, and poor results regarding pain control. Patient understands and wished to proceed. Procedure is lumbar epidural steroid injection under local anesthetic using sterile prep and drape at the L4-5 level using C-arm fluoroscopic guidance in both AP and lateral views medications injected is 120 mg Depo-Medrol + 10 mL preservative-free normal saline and 2 mL contrast- condition at discharge is stable patient tolerated procedure well had no complications. KEVYN CAMPBELL MD May 26, 2020 08:52
== END | disposition home or self-care (01) ==
LOC: PNCL 07:59
PROVIDERS: ATTEND Anesthesiology
DX: M51.16 Intervertebral disc disorders with radiculopathy, lumbar region (principal); M50.10 Cervical disc disorder with radiculopathy, unspecified cervical region; M48.02 Spinal stenosis, cervical region; I10 Essential (primary) hypertension; E78.00 Pure hypercholesterolemia, unspecified; F32.9 Major depressive disorder, single episode, unspecified; Z79.899 Other long term (current) drug therapy; Z98.890 Other specified postprocedural states; Z88.0 Allergy status to penicillin
CPT/HCPCS: 62323; J1030; J1040; Q9965

== ENCOUNTER → 2020-06-09 | Outpatient (CLI) | payer MEDICARE ==
[~2020-06-09] MED LIST changes: -IOHEXOL 180 MG/ML 10 ML VIAL. ONE; -methylPREDNISolone ACETATE 40 MG/ML VIAL. ONE; -methylPREDNISolone ACETATE 80 MG/ML VIAL. ONE
--- NOTE | 2020-06-09 08:31 | PDOC ---
Progress Note - Pain Clinic Date of Service: DOS: DATE: 06/09/20 TIME: 08:28 Diagnosis: Dx: Cervical radiculopathy with cervical degenerative disease and cervical spinal stenosis Lumbar radiculopathy with lumbar degenerative disc disease History or Present Illness: HPI: 64-year-old female returns to follow-up status post cervical epidural steroid action x1 and lumbar epidural steroid injection x1. Patient reports about 99% and 75% improvement respectively and is doing much better patient reports she is increasing activity with greater ease and comfort doing household activities work activities walking greater distances sleeping better at night travel with greater ease and comfort and reports no significant increase in pain she is quite pleased with the progress thus far. Patient reports some pain in the low back as well as the base the neck and the left shoulder but very manageable patient reports aching and dull in the back shooting in the left shoulder some tingling and burning in the left hand as well but only minimal patient reports a 7 on scale 10 is worse over the past week for an average to its least as a 2 today. Patient reports no new motor or sensory deficits no new bowel or bladder incontinence or other complaints. Physical Exam: VS: Pressure is 138/73 pulse 68 respirations 18 temperature 98.3 F height is 5 feet 7 inches weight is 258 pounds PE: PHYSICAL EXAMINATION: GENERAL: The patient is awake, alert, oriented, appropriate, very pleasant demeanor HEENT: Shows normocephalic, atraumatic. Extraocular movements are intact and symmetrical. Oral cavity: Mucous membranes moist and pink. NECK: Shows anterior throat supple without palpable lymphadenopathy noted. Swallow reflex symmetrical. CHEST: Shows normal on inspection. Breath sounds are clear bilaterally. HEART: Shows S1, S2 clear. No murmurs auscultated. ABDOMEN: Soft, nontender, nondistended, obese. No palpable organomegaly is noted. BACK: Shows spine grossly in the midline. Normal-appearing cervical lordotic curvature. Cervical paraspinous muscles show symmetrical with inspection on palpation some mild tenderness only diffusely in inferior aspect cervical paraspinous muscle slightly more on the left than the right but symmetrical bilaterally without trigger points or radiation. There is slightly increased thoracic kyphosis, some minor flattening of the lumbar lordotic curvature. Lumbar paraspinous muscles show symmetrical on inspection, on palpation shows some moderate tenderness diffusely throughout the upper, middle and lower distribution of the paraspinous muscles without specific trigger points, without radiation of pain. The patient has good rotational motion of the lumbar spine, both laterally as well as extension and flexion without significant difficulty. No tenderness over the spinous processes, sacrum or sacroiliac regions. EXTREMITIES: Lower extremities show deep tendon reflexes 1+ in the patellar and tendo calcaneus tendons. Motor exam is 5 on a scale of 5 with right dorsiflexion, extension, quadriceps and hamstring flexion and 5/5 on the left. Peripheral pulses are 1 posterior tibial. No peripheral edema is noted bilaterally. Lower extremities are warm and dry to touch, equal in color and appearance. 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 SKIN: Shows warm and dry, good turgor. No edema. No sores, rashes or bruising throughout. Procedure: Procedure: Options discussed with the patient. Patient chart reviews her current medication regimen updated current review of systems updated today as well. As patient is doing quite a bit better we'll hold on any further injections at this time by patient's request. Patient is encouraged to increase activity as tolerated also maintain stretching and strengthening exercises and oral analgesics as currently. Patient will return to clinic at this time on as-ne eded basis. Medication Injected: Med Injected: None Condition at Discharge: Condition at Discharge: Condition at discharge is stable. KEVYN CAMPBELL MD June 09, 2020 08:31
== END | disposition home or self-care (01) ==
LOC: PNCL 08:09
PROVIDERS: ATTEND Anesthesiology
DX: M50.10 Cervical disc disorder with radiculopathy, unspecified cervical region (principal); M48.02 Spinal stenosis, cervical region; M51.16 Intervertebral disc disorders with radiculopathy, lumbar region; I10 Essential (primary) hypertension; E78.00 Pure hypercholesterolemia, unspecified; F32.9 Major depressive disorder, single episode, unspecified; Z79.899 Other long term (current) drug therapy; Z98.890 Other specified postprocedural states
CPT/HCPCS: G0463

== ENCOUNTER → 2020-09-29 | Outpatient (CLI) | payer MEDICARE ==
--- NOTE | 2020-09-29 10:18 | PDOC ---
Progress Note - Pain Clinic Date of Service: DOS: DATE: 09/29/20 TIME: 10:13 Diagnosis: Dx: Cervical radiculopathy with cervical degenerative disc disease and cervical spinal stenosis Lumbar radiculopathy with lumbar degenerative disc disease History or Present Illness: HPI: 65-year-old male returns for follow-up status post cervical epidural steroid injection x1 and lumbar epidural steroid injection x1. Patient reports did very well with about 89% improvement with the cervical injection about 75% improvement with lumbar injection. Patient reports about 2 weeks ago she began to have more pain in the base the neck and the left upper extremity radiating to the hand and the thumb and the 1st finger especially with tingling and numbness but over the past 2 weeks the pain is decreased on its own with doing some stretching and relaxing patient reports is doing much better and the low back also painful and with radiation to the right lower extremity has improved as well patient reports her pain to 4 to scale 10 is worse over the past week for an average 3 its least is a 4 today patient was aching sharp shooting tingling burning cramping can be radiating into the right leg as well but mostly in the left arm but is gotten a lot better in the last 2 weeks on its own. Patient reports she has been able to sleep better at night as opposed to 2 weeks ago when it was waking her up frequently. Patient reports that it is worse with walking and standing better with sitting or resting but again the pain is decreased to a fair amount and she is apprehensive of getting another injection if she is not absolutely needed at this time. Patient reports no new motor or sensory deficits or bladder incontinence or other complaints. Physical Exam: VS: Blood pressure is 155/79 pulse 71 respirations 18 temperature 97 F height 5 feet 7 inches weight is 245 PE: PHYSICAL EXAMINATION: GENERAL: The patient is awake, alert, oriented, appropriate, very pleasant in demeanor HEENT: Shows normocephalic, atraumatic. Extraocular movements are intact and symmetrical. Oral cavity: Mucous membranes moist and pink. Dentition is intact. NECK: Shows anterior throat supple without palpable lymphadenopathy noted. Swallow reflex symmetrical. CHEST: Shows normal on inspection. Breath sounds are clear bilaterally, no rales rhonchi or wheezes auscultated. HEART: Shows S1, S2 clear. No murmurs auscultated. ABDOMEN: Soft, nontender, nondistended, obese. No palpable organomegaly is noted. BACK: Shows spine grossly in the midline. Normal-appearing cervical lordotic curvature. Cervical paraspinous muscles show symmetrical inspection on palpati on some tenderness in the inferior aspect the cervical paraspinous muscular more on the left than the right into the superior medial trapezius but without atrophy without hypertrophy without trigger points. Patient shows full rotation of motion cervical spine both laterally as well as full extension full forward flexion without significant difficulty. Shoulder shrug is strong and intact without loss of strength on resistance bilaterally. There is slightly increased thoracic kyphosis, some minor flattening of the lumbar lordotic curvature. Lumbar paraspinous muscles show symmetrical on inspection, on palpation shows some moderate tenderness diffusely throughout the upper, middle and lower distribution of the paraspinous muscles without specific trigger points, without radiation of pain. The patient has good rotational motion of the lumbar spine, both laterally as well as extension and flexion without significant difficulty. EXTREMITIES: Lower extremities show deep tendon reflexes 1+ in the patellar and tendo calcaneus tendons. Motor exam is 5 on a scale of 5 with right dorsiflexion, extension, quadriceps and hamstring flexion and 5/5 on the left. Peripheral pulses are 1 posterior tibial. No peripheral edema is noted bilaterally. Lower extremities are warm and dry to touch, equal in color and appearance. 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 Peripheral pulses are 2+ radial. SKIN: Shows warm and dry, good turgor. No edema. No sores, rashes or bruising throughout. Procedure: Procedure: Options discussed with the patient. Patient's old chart reviews her current medication regimen updated current review of systems updated today as well. We will hold on any further injections at this time and will try Medrol Dosepak instead see if this may decrease the pain as she is improving on her own with some stretching and strengthening already. Patient given instructions well side effects aware of the medication. Also will start new medication baclofen as we discussed her muscle relaxers have made her restless in the past and she is not on baclofen for a try this 10 mg up to 3 times daily if necessary. Patient was given instructions well side effects aware with the baclofen as well. Patient will follow up in approximately 2 weeks or as necessary. Medication Injected: Med Injected: None Condition at Discharge: Condition at Discharge: Condition at discharge is stable. KEVYN CAMPBELL MD Sep 29, 2020 10:18
== END | disposition home or self-care (01) ==
LOC: PNCL 09:52
PROVIDERS: ATTEND Anesthesiology
DX: M50.10 Cervical disc disorder with radiculopathy, unspecified cervical region (principal); M48.02 Spinal stenosis, cervical region; M51.16 Intervertebral disc disorders with radiculopathy, lumbar region; I10 Essential (primary) hypertension; E78.00 Pure hypercholesterolemia, unspecified; F32.9 Major depressive disorder, single episode, unspecified; Z79.899 Other long term (current) drug therapy; Z98.890 Other specified postprocedural states; Z88.0 Allergy status to penicillin
CPT/HCPCS: G0463

== ENCOUNTER → 2021-01-18 | Outpatient (CLI) | payer MEDICARE ==
[~2021-01-18] MED LIST changes: -FLUO20CA20 PO; +FLUO20CA22 PO
--- NOTE | 2021-01-18 16:52 | KCIC ---
Exam Date: 01/18/2021 11:00 AM MRI RIGHT LOWER EXTREMITY JOINT WITHOUT Indication: Reason: RIGHT KNEE PAIN / Spl. Instructions: / History: Anterior right knee pain in rece nt months, not improving.. TECHNIQUE: Routine multiplanar MR imaging of the knee was performed without contrast. FINDINGS: There is a horizontal tear in the body of the medial meniscus extending to the inferior articular emery face. Degenerative signal is seen in the posterior horn of the lateral meniscus without discrete meniscal t ear. The anterior cruciate ligament, posterior cruciate ligament, medial collateral ligament, and lateral collateral ligament complex are intact. Patellofemoral extensor mechanism and popliteus tendon are w ithin normal limits. Multifocal full-thickness chondral defects are seen in the patellofemoral compartment with mild subch ondral degenerative marrow signal. Focal full-thickness chondral loss is seen along the weightbearin g medial femoral condyle with mild subchondral degenerative marrow signal. Partial thickness chondra l loss is seen in the lateral compartment. Bone marrow demonstrates benign signal on all sequences. No acute fracture is seen. Physiologic joint fluid is present. There is no popliteal cyst. IMPRESSION: Medial meniscal tear noted. Degenerative signal noted in the lateral meniscus without discrete tear. Full-thickness chondral loss noted in the medial and patellofemoral compartments. Electronically signed by: Tyson Craft MD (01/18/2021 4:49 PM) [id number]
== END ==
LOC: KCIC MRI 10:46
PROVIDERS: ATTEND Physician Assistant Medical
DX: S83.241A Other tear of medial meniscus, current injury, right knee, initial encounter (principal); X58.XXXA Exposure to other specified factors, initial encounter; Y93.89 Activity, other specified; Y92.89 Other specified places as the place of occurrence of the external cause; Y99.8 Other external cause status
CPT/HCPCS: 73721